=== PATIENT | male | born 1945 | race African-American/Black ===

== ENCOUNTER → 2017-01-06 | Outpatient (CLI) | payer OTHER ==
[~2017-01-06] MED LIST: ACTOS 30 MG TAB30 MG PO; ANALGESIC325 MG PO; COLACE100 MG PO; CRESTOR20 MG PO; ESTER-C500 M1 PO; FISH OIL500 M1 PO; FLOMAX PO; GLUCOPHAGE500 MG PO; HUMALOG100 UNIT/1 SQ; HYDROCODONE-AP1 EAC6 PO; LANTUS SC; NITROGLYCERIN0.4 MG SL; TOPROL XL50 MG PO; VALIUM5 MG PO; ZESTORETIC 10-1 EACH PO; ZOFRAN ODT4 MG PO; [UNRECOGNIZED DRUG - OTHER]
== END ==
LOC: RAD 14:17
DX: R06.02 Shortness of breath (principal)

== ENCOUNTER 2017-04-29 12:39 | Inpatient (IN) | payer OTHER ==
[~2017-04-29] VITALS: Ht 180.3 cm; Wt 94.1 kg
--- NOTE | ~2017-04-29 | EKG ---
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 04/30/17 1501 0605 0605 Chris Díaz MD, [facility] /EPI
--- NOTE | ~2017-04-29 | 2DMMODE ---
[facility] [address] [place] [address] 2 D/M-MODE ECHOCARDIOGRAM Name: PAVEL MCIKNLEY Room #: 210-P ADM IN M.R.#: [id number] Admission: 04/29/17 Attend Phys: Caden De La Garza, Discharge: Date of : 41 Date of Service: 04/29/17 1643 Report #: [id number] THIS REPORT FOR: //name// APPROVED REPORT Study performed: 04/29/2017 13:52:43 EXAM: Comprehensive 2D, Doppler, and color-flow Echocardiogram Patient Location: Echo lab Room #: 210 Status: routine BSA: 2.15 HR: 56 bpm BP: 127/60 mmHg Rhythm: NSR Other Information Study Quality: Good Indications Chest Pain Hx: LA, HTN, HLP 2D Dimensions RVDd: 36.71 mm LVEF(%): 62.85 (>50%) IVSd: 12.96 (7-11mm) LVOT Diam: 22.07 (18-24mm) LVDd: 47.19 mm PWd: 12.48 (7-11mm) Ascending Ao: 32.96 (22-36mm) LVDs: 31.16 (25-40mm) Aortic Root: 36.42 mm Cervantes's LVEF: 62.85 % Volumes Left Atrial Volume (Systole) Single Plane 4CH: 41.49 mL Single Plane 2CH: 64.30 mL LA ESV Index: 26.00 mL/m2 Aortic Valve AoV Peak Darnell.: 1.13 m/s AO Peak Gr.: 5.09 mmHg LVOT Max P.25 mmHg LVOT Max V: 0.75 m/s MANJINDER Vmax: 2.55 cm2 Mitral Valve E/A Ratio: 0.8 [facility] [place] [address] 2 D/M-MODE ECHOCARDIOGRAM Name: ELÍASPAVEL Room #: [address] [place] [address] IN M.R.#: [id number] Admission: 04/29/17 Attend Phys: Caden De La Garza, Discharge: Date of : 41 Date of Service: 04/29/17 1643 Report #: [id number] MV Decel. Time: 190.41 ms MV E Max Darnell.: 0.97 m/s MV A Darnell.: 1.16 m/s MV PHT: 55.22 ms IVRT: 78.43 ms Pulmonary Valve PV Peak Darnell.: 0.62 m/s PV Peak Gr.: 1.55 mmHg Pulmonary Vein P Vein S: 0.51 m/s P Vein D: 0.41 m/s P Vein S/D Ratio: 1.24 Tricuspid Valve TR Peak Darnell.: 2.38 m/s RAP Estimate: 5.00 mmHg TR Peak Gr.: 22.57 mmHg PA Pressure: 28.00 mmHg Left Ventricle The left ventricle is normal size. There is normal LV segmental wall motion. Mild concentric left ventricular hypertrophy. Left ventricular systolic function is normal. LVEF is 55-60%. Mild diastolic dysfunction is present (impaired relaxation pattern). Right Ventricle The right ventricle is normal size. The right ventricular systolic function is normal. Atria The left atrium size is normal. The right atrium size is normal. Aortic Valve Aortic valve leaflets are mildly thickened and calcified. Trace to mild aortic regurgitation. There is no aortic valvular stenosis. Mitral Valve The mitral valve is normal in structure. Trace to mild mitral regurgitation. Tricuspid Valve The tricuspid valve is normal in structure. Mild tricuspid regurgitation. Estimated PAP is 28mmHg. [address] [address] 2 D/M-MODE ECHOCARDIOGRAM Name: PAVEL MCKINLEY Room #: [address] [place] [address] IN M.R.#: [id number] Admission: 04/29/17 Attend Phys: Caden De La Garza, Discharge: Date of : 41 Date of Service: 04/29/17 1643 Report #: [id number] Pulmonic Valve The pulmonary valve is normal in structure. Trace pulmonic regurgitation. Great Vessels The aortic root is normal in size. The ascending aorta is normal in size. IVC is normal in size and collapses >50% with inspiration. Pericardium There is no pericardial effusion. <Conclusion> The left ventricle is normal size. Mild concentric left ventricular hypertrophy. LVEF is 55-60%. Mild diastolic dysfunction is present (impaired relaxation pattern). The right ventricle is normal size. The left atrium size is normal. Aortic valve leaflets are mildly thickened and calcified. Trace to mild aortic regurgitation. There is no aortic valvular stenosis. Trace to mild mitral regurgitation. Trace to mild mitral regurgitation. Mild tricuspid regurgitation. Estimated PAP is 28mmHg. There is no pericardial effusion. <ELECTRONICALLY SIGNED> By: Caden De La Garza MD, FACC 04/29/17 164 42 42 Caden De La Garza MD, FACC /INF
--- NOTE | ~2017-04-29 | EKG ---
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
[2017-04-29 13:15] VITALS: BP 127/60
[2017-04-29] MEDS ORDERED: PROAIR HFA8.5 GM INH (14:14)
[2017-04-29 14:35] LABS: HEMATOCRIT 43.7 % (42.0-52.0); HEMOGLOBIN 14.3 gm/dL (14.0-18.0); MCH 30.1 pg (26.0-34.0); MCHC 32.7 g/dL (28.0-37.0); RBC 4.75 mil/uL (4.50-6.00); RDW 15.1 % (10.5-14.5); WBC 4.9 thou/uL (4.0-11.0)
[2017-04-29 14:51] LABS: ALBUMIN 3.5 g/dL (3.4-5.0); ANION GAP 5 mmol/L (7-16); BUN 17 mg/dL (7-18); CALCIUM 9.3 mg/dL (8.5-10.1); CHLORIDE 105 mmol/L (98-107); CO2 30 mmol/L (21-32); CREATININE 1.4 mg/dL (0.7-1.3); GLUCOSE 138 mg/dL (74-106); POTASSIUM 4.2 mmol/L (3.5-5.1); SGOT 23 U/L (15-37); SGPT 36 U/L (30-65); SODIUM 140 mmol/L (136-145); TOTAL BILIRUBIN 0.3 mg/dL (<0.1-1.0); TROPONIN-I < 0.04 ng/mL (<0.06)
[2017-04-29 16:45] VITALS: BP 135/71
[2017-04-29 19:45] VITALS: BP 127/63
[2017-04-29 23:51] VITALS: BP 126/50
[2017-04-30 04:30] VITALS: BP 116/73; BP 133/61
[2017-04-30 07:11] VITALS: BP 1363/57
[2017-04-30] MEDS ORDERED: PACERONE 200 M200 M1 PO (08:34)
[2017-04-30] MEDS ORDERED: XARELTO20 MG PO (08:34)
[2017-04-30 09:08] VITALS: BP 1363/57
[2017-04-30 10:06] VITALS: BP 1363/57
[2017-04-30 10:07] VITALS: BP 1363/57
== END 2017-04-30 10:35 | disposition home or self-care (01) | DRG 310 ==
LOC: 2N 12:39 → ENTRNSPT 04-30 10:32 → 2N 04-30 10:35
PROVIDERS: Nurse Practitioner Adult Health
DX: I48.92 Unspecified atrial flutter (principal); I25.10 Atherosclerotic heart disease of native coronary artery without angina pectoris; I10 Essential (primary) hypertension; E78.00 Pure hypercholesterolemia, unspecified; E11.51 Type 2 diabetes mellitus with diabetic peripheral angiopathy without gangrene; J44.9 Chronic obstructive pulmonary disease, unspecified; Z82.49 Family history of ischemic heart disease and other diseases of the circulatory system; Z79.899 Other long term (current) drug therapy; Z87.891 Personal history of nicotine dependence
CPT/HCPCS: 10797

== ENCOUNTER → 2019-01-06 | Outpatient (CLI) | payer OTHER ==
[~2019-01-06] MED LIST changes: +PACERONE 200 M200 M1 PO; +PROAIR HFA8.5 GM INH; +XARELTO20 MG PO
== END ==
LOC: RAD 07:57
DX: J47.9 Bronchiectasis, uncomplicated (principal)

== ENCOUNTER → 2019-04-28 | Outpatient (CLI) | payer OTHER | LOC: SJCVC 11:59 | DX: R94.31 Abnormal electrocardiogram [ECG] [EKG] (principal); I25.89 Other forms of chronic ischemic heart disease; I25.10 Atherosclerotic heart disease of native coronary artery without angina pectoris; E11.51 Type 2 diabetes mellitus with diabetic peripheral angiopathy without gangrene; I65.23 Occlusion and stenosis of bilateral carotid arteries; I25.5 Ischemic cardiomyopathy; I48.0 Paroxysmal atrial fibrillation; E78.00 Pure hypercholesterolemia, unspecified; D68.59 Other primary thrombophilia; Z86.73 Personal history of transient ischemic attack (TIA), and cerebral infarction without residual deficits ==

== ENCOUNTER → 2019-12-01 | Outpatient (CLI) | payer OTHER | LOC: SJCVCIMAG 07:22 | PROVIDERS: ATTEND Internal Medicine Cardiovascular Disease | DX: I65.23 Occlusion and stenosis of bilateral carotid arteries (principal); I70.201 Unspecified atherosclerosis of native arteries of extremities, right leg; I25.10 Atherosclerotic heart disease of native coronary artery without angina pectoris; I10 Essential (primary) hypertension; E78.00 Pure hypercholesterolemia, unspecified; D68.59 Other primary thrombophilia; I48.0 Paroxysmal atrial fibrillation; E11.9 Type 2 diabetes mellitus without complications; E78.1 Pure hyperglyceridemia; Z95.828 Presence of other vascular implants and grafts; Z79.899 Other long term (current) drug therapy; Z87.891 Personal history of nicotine dependence; Z86.73 Personal history of transient ischemic attack (TIA), and cerebral infarction without residual deficits ==

== ENCOUNTER → 2020-01-20 | Outpatient (CLI) | payer OTHER | LOC: SJCVCIMAG 08:43 | PROVIDERS: ATTEND Internal Medicine Cardiovascular Disease | DX: I25.10 Atherosclerotic heart disease of native coronary artery without angina pectoris (principal); I11.9 Hypertensive heart disease without heart failure; I48.91 Unspecified atrial fibrillation; Z79.899 Other long term (current) drug therapy ==

== ENCOUNTER → 2020-09-05 | Outpatient (CLI) | payer OTHER | END | disposition home or self-care (01) | LOC: CAT 10:09 | PROVIDERS: ATTEND Pediatrics | DX: J43.2 Centrilobular emphysema (principal); J47.9 Bronchiectasis, uncomplicated; I25.10 Atherosclerotic heart disease of native coronary artery without angina pectoris ==

== ENCOUNTER → 2020-12-29 | Outpatient (CLI) | payer OTHER | LOC: SJCVCIMAG 07:44 | PROVIDERS: ATTEND Internal Medicine Cardiovascular Disease | DX: I35.1 Nonrheumatic aortic (valve) insufficiency (principal); R93.1 Abnormal findings on diagnostic imaging of heart and coronary circulation; I49.3 Ventricular premature depolarization; I51.7 Cardiomegaly; I25.10 Atherosclerotic heart disease of native coronary artery without angina pectoris; R07.89 Other chest pain; I25.9 Chronic ischemic heart disease, unspecified ==

== ENCOUNTER → 2021-01-01 | Outpatient (CLI) | payer OTHER ==
[~2021-01-01] VITALS: Ht 177.8 cm; Wt 93.0 kg
[~2021-01-01] MED LIST changes: +AMIODARONE HCL400 MG PO; +LEVEMIR100 UNIT/1 SUBQ; +LISINOPRIL-HCT1 EAC2 PO; +NORVASC 2.5 MG2.5 M1 PO; +NOVOLOG FL100 UNIT/M SUBQ; +TRELEGY ELLIPT1 EACH INH; +VENTOLIN HFA 1818 GM INH; +ZYRTEC10 M5 PO
[2021-01-01 08:55] VITALS: BP 120/61
[2021-01-01 08:58] LABS: HEMATOCRIT 43.2 % (42.0-52.0); MCH 30.5 pg (26.0-34.0); MCHC 32.4 g/dL (28.0-37.0); MCV 93.9 fL (80.0-100.0); PLATELET COUNT 131 thou/uL (150-400); RDW 15.7 % (10.5-14.5); WBC 3.9 thou/uL (4.0-11.0)
[2021-01-01 09:10] LABS: CALCIUM 8.9 mg/dL (8.5-10.1); CREATININE 1.3 mg/dL (0.7-1.3)
[2021-01-01 11:22] LABS: ABSOLUTE NEUTROPHILS 2.3 thou/uL (1.4-8.2)
[2021-01-01 11:23] LABS: ANISOCYTOSIS 1+
--- NOTE | 2021-01-01 12:05 | EKG ---
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[facility] : 1945 Requested By: Caden De La Garza Order Number: [id number] MD: Suman Smith Measurements Intervals [place] Rate: 82 P: 61 SD: 131 QRS: 31 QRSD: 89 T: 57 QT: 368 QTc: 430 Interpretive Statements Sinus rhythm Probable left atrial enlargement Borderline T wave abnormalities Baseline wander in lead(s) I,II,aVR,aVL Compared to ECG 04/30/2017 06:05:33 T-wave abnormality now present Sinus bradycardia no longer present Electronically Signed On 01-01-2021 12:05:39 POCKET CRE[employer]ER by Suman Smith [email or web address] <ELECTRONICALLY SIGNED> By: Suman Smith MD, FACC 01/01/21 1205 Suman Smith MD, [facility] /EPI
--- NOTE | 2021-01-01 14:03 | CATHLAB ---
[facility] [place] [address] INVASIVE PROCEDURE REPORT Name: PAVEL MCKINLEY Room #: NIKI [place]#: [id number] Admission: 01/01/21 Attend Phys: Caden De La Garza MD, Discharge: Date of : 41 Report #: [id number] THIS REPORT FOR: cc: Jeannine Spain MD, Jennifer S. MD Mancuso, Gerald M. MD [facility] ~ APPROVED REPORT Study performed: 01/01/2021 09:41:06 Patient Details Patient Status: Out-Patient Room #: The patient is a 75 year-old male Event Personnel Caden De La Garza Rn Surgical Pcu, Stephany Damon RTR Monitor, Yissel Dodd RN RN, Shanthi Adam RTR Scrub Procedures Performed Art Access - R femoral artery* Left Heart Cath w/or w/o Coronaries [id number] [facility] Renal Bilateral Peripheral Angiography [id number] CVRENALBIL Hemostasis w/ Mynx 23545 Initial Mod Sed Same Phys/QHP Gr5y [id number] 57133 Mod Sed Same Phys/QHP Ea 825607 Procedure Narrative The Right Groin^ was infiltrated with 1% Lidocaine subcutaneous anesthesia. A PINNACLE 6FR Sheath #[id number] sheath was inserted into the RFA^. Coronary angiography was performed using coronary diagnostic catheters. The right coronary system was accessed and visualized with a JR4 catheter. The left coronary system was accessed and visualized with a JL4 catheter. The left ventricle was accessed and visualized with a STRAIGHT PIGTAIL catheter. Left ventriculogram was performed in 30 degree projection. Pre-demployment femoral angiogram was performed . Closure device was deployed with a Fr MYNXGRIP 6/7F #[id number]. The patient tolerated the procedure well and there were no complications associated with the procedure. There was no hematoma. Intraoperative Conscious Sedation Sedation start time: 10:00 Case end Time: 10:25 Fentanyl 50 mcg Versed 1 mg Fluoro Time: 1.40 minutes [facility] [address] [place] [address] INVASIVE PROCEDURE REPORT Name: PAVEL MCKINLEY Room #: [facility]#: [id number] Admission: 01/01/21 Attend Phys: Caden De La Garza, Discharge: Date of : 41 Report #: [id number] Dose: DAP 3507.40 cGycm2 407 mGy Contrast Type and Amount: Visipaque 70 ml Hemodynamics The aortic pressure is 156/55 mmHg with a mean of 60 mmHg. The left ventricular pressure is 168/5 mmHg with a mean of mmHg. The left ventricular end diastolic pressure is 21 mmHg. Conclusion #1 Normal left ventricular size and systolic function normal EF 55% #2 left main with mild calcification widely patent giving rise to LAD and circumflex #3 LAD mild proximal calcification eccentric approximately vessel lesion 40% no significant progression this wraps the apex. Moderate diagonal disease. #4 nondominant circumflex are somewhat of a codominant system with moderate disease and calcification no high-grade occlusive disease. #5 codominant right coronary artery is occluded and the small PDA is filled via the left system Recommendation plan: Continue aggressive risk factor modification no indication for coronary intervention. There is been minimal progression of this current coronary anatomy since the exam of 2015. <ELECTRONICALLY SIGNED> By: Caden De La Garza MD, FACC 01/01/21 1403 140 140 Caden De La Garza MD, FACC /INF
--- NOTE | 2021-01-02 11:21 | H ---
[facility] [place] [address] HISTORY AND PHYSICAL Name: PAVEL MCKINLEY Room #: REG KAYLI Dunne.#: [id number] Admission: 01/01/21 Attend Phys: Caden De La Garza MD, Discharge: Date of : 41 Report #: [id number] THIS REPORT FOR: cc: Jeannine Spain MD, Jennifer S. MD Mancuso, Gerald M. MD [facility] ~ cc: Jeannine Spain MD DATE OF SERVICE: 01/01/2021 SHORT STAY SUMMARY HISTORY OF PRESENT ILLNESS: A 75-year-old male admitted today for an abnormal stress echocardiographic exam done last week. He was not seen in the office due to time constraints and had recurrent chest pain which precipitated this exam last week. He has a history of a right coronary artery occlusion and well collateralized via the left system. The last catheterization was 2015. Ejection fraction has been fairly well preserved. He has a history of a left SFA stents and mild renal disease, paroxysmal AFib in addition. He has otherwise been doing well, perhaps a slight recent decrease in exercise tolerance. Last catheterization was 04/2015. CURRENT MEDICATIONS: Amiodarone 100 mg, amlodipine 2.5, Trelegy Ellipta, Levemir, lisinopril/HCT 20/12.5, metformin was held, metoprolol 50, NovoLog, rosuvastatin, Xarelto which was also held, albuterol and Voltaren p.r.n. gel. PAST MEDICAL HISTORY: Positive for the coronary artery disease as stated above, peripheral vascular disease as stated above, COPD, diabetes, hypertension, DJD, ganglion cyst. FAMILY HISTORY: Father had diabetes. SOCIAL HISTORY: He is . He is retired. Quit tobacco 20 years ago. No significant alcohol intake. Has a glass of wine. No drug use. Some caffeine. ALLERGIES: No known drug allergies. REVIEW OF SYSTEMS: Negative except for what is stated above. PHYSICAL EXAMINATION: VITAL SIGNS: Blood pressure 150/70, pulse 70s. HEENT: Eyes reveal xanthelasmas. Pharynx is clear. NECK: Shows preserved upstrokes without JVD or bruits. LUNGS: Clear. CARDIAC: Regular rate and rhythm, S1, S2. ABDOMEN: Soft, HSM, abdominal bruit. [facility] [address] [place] [address] HISTORY AND PHYSICAL Name: PAVEL MCKINLEY Room #: NIKI [place]#: [id number] Admission: 01/01/21 Attend Phys: aCden De La Garza MD, Discharge: Date of : 41 Report #: [id number] EXTREMITIES: Reveal slight diminished pulse, but intact. NEUROLOGIC: Nonfocal. SKIN: Warm and dry without xanthoma or ulcer. MUSCULOSKELETAL: Generalized arthritic changes. HOSPITAL COURSE: The patient was taken to the catheterization lab. There is mild to moderate left main, LAD and circumflex disease. The RCA was occluded as previously noted and well collateralized. The ejection fraction was preserved. Selective renal angiography was performed. There was mild ostial disease in the 30% range bilaterally. The patient tolerated this well. A closure device was utilized without complication. He will be recovered in the holding area and then discharged to home. ASSESSMENT: 1. Stable coronary artery disease with catheterization today. Chest pain, possibly consistent with stable angina or other etiology. 2. Diabetes. 3. Hypertension. 4. Hypercholesterolemia. 5. Chronic obstructive pulmonary disease with prior tobacco use. 6. Degenerative joint disease. Followup scheduled in my office in 6 months. No lifting for 48 hours. No lying in tub, Jacuzzi or islas for a week. The patient will call with any issues. Thank you for allowing us to care for this patient. <ELECTRONICALLY SIGNED> By: Caden De La Garza MD, FACC 01/02/21 1121 0923 0943 Caden De La Garza MD, FACC /nt
== END | disposition home or self-care (01) ==
LOC: CATH 06:18
PROVIDERS: ATTEND Internal Medicine Cardiovascular Disease
DX: R07.9 Chest pain, unspecified (principal); I25.10 Atherosclerotic heart disease of native coronary artery without angina pectoris; I10 Essential (primary) hypertension; E78.00 Pure hypercholesterolemia, unspecified; I48.91 Unspecified atrial fibrillation; E11.9 Type 2 diabetes mellitus without complications; J44.9 Chronic obstructive pulmonary disease, unspecified; I73.9 Peripheral vascular disease, unspecified; I25.2 Old myocardial infarction; Z98.890 Other specified postprocedural states; Z79.899 Other long term (current) drug therapy; Z86.73 Personal history of transient ischemic attack (TIA), and cerebral infarction without residual deficits; Z87.891 Personal history of nicotine dependence; Z79.01 Long term (current) use of anticoagulants

== ENCOUNTER → 2021-03-21 | Outpatient (CLI) | payer OTHER | LOC: SJCVCIMAG 08:04 | PROVIDERS: ATTEND Internal Medicine Cardiovascular Disease | DX: E78.00 Pure hypercholesterolemia, unspecified (principal); R00.1 Bradycardia, unspecified; I25.10 Atherosclerotic heart disease of native coronary artery without angina pectoris; I73.9 Peripheral vascular disease, unspecified; D68.59 Other primary thrombophilia; I48.0 Paroxysmal atrial fibrillation; E11.9 Type 2 diabetes mellitus without complications; F17.210 Nicotine dependence, cigarettes, uncomplicated; M54.12 Radiculopathy, cervical region; J44.9 Chronic obstructive pulmonary disease, unspecified; I10 Essential (primary) hypertension; Z79.84 Long term (current) use of oral hypoglycemic drugs; Z79.899 Other long term (current) drug therapy; Z72.89 Other problems related to lifestyle ==